=== PATIENT | female | born 1940 | race Caucasian/White ===

== ENCOUNTER 2022-06-01 15:27 | Outpatient (CLI) | payer MEDICARE | END 2022-06-01 15:28 | disposition home or self-care (01) | LOC: CSHMAMMO 15:27 | PROVIDERS: ATTEND Student in an Organized Health Care Education/Training Program | DX: Z13.820 Encounter for screening for osteoporosis (principal); S72.141D Displaced intertrochanteric fracture of right femur, subsequent encounter for closed fracture with routine healing; M81.0 Age-related osteoporosis without current pathological fracture; M85.88 Other specified disorders of bone density and structure, other site | CPT/HCPCS: 77080 ==

== ENCOUNTER 2022-07-08 10:35 | Outpatient (CLI) | payer MEDICARE ==
[~2022-07-08 10:35] MED LIST: Magnevist 469MG/ML 20 ML VIAL ONE
== END 2022-07-08 10:36 | disposition home or self-care (01) ==
LOC: CSHMRI 10:35
PROVIDERS: ATTEND Internal Medicine Gastroenterology
DX: D49.0 Neoplasm of unspecified behavior of digestive system (principal); K52.9 Noninfective gastroenteritis and colitis, unspecified; Z87.11 Personal history of peptic ulcer disease; K86.2 Cyst of pancreas
CPT/HCPCS: 74183; 82565; A9579

== ENCOUNTER 2023-01-15 11:23 | Emergency (ER) | payer MEDICARE ==
[2023-01-15] MEDS ORDERED: Ketorolac Tromethamine 30 MG/ML VIAL ONE (12:12)
[2023-01-15] MEDS ORDERED: Morphine 2 MG/ML VIAL ONE (12:19)
== END 2023-01-15 13:03 | disposition home or self-care (01) ==
LOC: CSHERS 11:23
DX: M25.561 Pain in right knee (principal); I11.0 Hypertensive heart disease with heart failure; I50.9 Heart failure, unspecified; E11.9 Type 2 diabetes mellitus without complications
CPT/HCPCS: 96374; J1885; J2272

== ENCOUNTER 2023-04-26 12:52 | Outpatient (CLI) | payer MEDICARE | END 2023-04-26 12:53 | disposition home or self-care (01) | LOC: CSHRAD 12:52 | PROVIDERS: ATTEND Student in an Organized Health Care Education/Training Program | DX: R05.1 Acute cough (principal); I51.7 Cardiomegaly | CPT/HCPCS: 71046 ==